=== PATIENT | male | born 1985 | race Hispanic/Latino ===

== ENCOUNTER 2025-05-22 10:58 | Emergency (ER) | payer SELFPAY ==
[2025-05-22 13:50] VITALS: BP 133/82; TEMP 96.5; O2SAT 98
[2025-05-22] MEDS ORDERED: MIRT-88 PO (16:14)
== END 2025-05-22 16:26 | disposition home or self-care (01) ==
LOC: M ED 10:58
DX: G47.00 Insomnia, unspecified (principal); Z79.899 Other long term (current) drug therapy